=== PATIENT | male | born 1960 | race Caucasian/White ===

== ENCOUNTER 2017-04-10 07:33 | Day surgery (SDC) | payer BC, OTHER ==
[2017-04-09 13:27] VITALS: BMI 25.3
[2017-04-10] MEDS ORDERED: DEXAMETHASONE SOD PHOSPHATE 4 MG/1 ML VIAL ONE ×2 (08:39→11:47)
[2017-04-10] MEDS ORDERED: PROPOFOL 20 ML ONE (08:39)
[2017-04-10] MEDS ORDERED: PHENYLEPHRINE HCL 10 MG/1 ML SINGLE DOSE VIAL ONE (08:39)
[2017-04-10] MEDS ORDERED: LIDOCAINE HCL/PF 2% SDV 5ML VIAL ONE (08:39)
[2017-04-10] MEDS ORDERED: SUCCINYLCHOLINE CHLORIDE 200 MG/10 ML VIAL ONE (08:39)
[2017-04-10] MEDS ORDERED: ROCURONIUM BROMIDE 50 MG/5 ML VIAL ONE ×3 (08:40→10:33)
[2017-04-10] MEDS ORDERED: MIDAZOLAM HCL 2 MG/2 ML SINGLE DOSE VIAL ONE (08:40)
[2017-04-10] MEDS ORDERED: ePHEDrine SULFATE 50 MG/1 ML AMPULE ONE (08:41)
[2017-04-10] MEDS ORDERED: SODIUM CHLORIDE 0.9% P/F 10 ML VIAL IJ ONE (08:42)
[2017-04-10] MEDS ORDERED: BUPIVACAINE HCL/PF 0.5% (5MG/ML) 10 ML VIAL ONE (08:45)
[2017-04-10] MEDS ORDERED: CLINDAMYCIN 600 MG PREMIX BAG IVPB ONE ×2 (09:59→10:10)
[2017-04-10] MEDS ORDERED: HYDROmorphone HCL/PF 1 MG/ML VIAL (FOR PYXIS CHARGING ONLY) ONE ×4 (10:07→10:43)
[2017-04-10] MEDS ORDERED: CLINDAMYCIN PHOSPHATE 600 MG/4 ML VIAL ONE (10:15)
[2017-04-10] MEDS ORDERED: NEOSTIGMINE METHYLSULFATE 0.5 MG/ML - 10 ML MDV ONE (11:45)
[2017-04-10] MEDS ORDERED: GLYCOPYRROLATE 0.2 MG/1 ML VIAL ONE (11:45)
[2017-04-10] MEDS ORDERED: PROMETHAZINE HCL 25 MG/1 ML VIAL IVPUSH PRN (12:08)
[2017-04-10] MEDS ORDERED: oxyCODONE HCL 5 MG TABLET PO PRN (12:08)
[2017-04-10] MEDS ORDERED: LACTATED RINGERS SOLUTION 1,000 ML IV SCH (12:15)
[2017-04-10 13:55] VITALS: TEMP 98.6
[2017-04-10] MEDS ORDERED: oxyCODONE HCL 5 MG TABLET ONE (14:38)
--- NOTE | 2017-04-10 15:15 | HP ---
Satellite [facility] - Chief Complaint Chief Complaint: Left inguinal hernia History Source: Patient Limitations to Obtaining History: No Limitations - Past Medical History Allergies/Adverse Reactions: Allergies Allergy/AdvReac Type Severity Reaction Status Date / Time Penicillins Allergy Intermediate Hives Verified 04/10/17 08:00 Cardiovascular: Yes: AFIB, Aneurysm - Current Medications Current Medications: Home Medications Medication Instructions Recorded Aspirin Coated [Ecotrin -] 81 mg PO DAILY 04/09/17 Enalapril Maleate [Vasotec -] 10 mg PO ASDIR 04/09/17 Metoprolol Succinate [Toprol Xl -] 50 mg PO DAILY 04/09/17 Metoprolol Succinate [Toprol Xl -] 100 mg PO HS 04/09/17 Docusate Sodium [Colace -] 100 mg PO TID #90 capsule 04/10/17 Oxycodone HCl/Acetaminophen 1 - 2 tab PO Q6H #28 tab MDD 4 04/10/17 [Percocet 5-325 mg Tablet] Satellite Physical Exam - Physical Examination Vital Signs: Vital Signs Period Temp Pulse Resp BP Sys/Gupta Pulse Ox Last 24 Hr 97.8 F-98.6 F 54-67 14-20 106-141/57-90 95-100 General Appearance: Well Nourished Heart: Regular rate & rhythm Abdomen: Soft, Other (Left inguinal hernia) Neurological: Alert, Oriented Satellite Impression/Plan - Impression/Plan Impression: Left inguinal hernia Operative Procedure: Robotic possible open left inguinal hernia repir with mesh Date to be Performed: 04/10/17
--- NOTE | 2017-04-10 15:18 | OP ---
Operative Note - Note: Operative Date: 04/10/17 Pre-Operative Diagnosis: Left inguinal hernia Operation: Robotic left inguinal hernia repair with mesh. Laparoscopic umbilical hernia repair Post-Operative Diagnosis: Other (Left inguinal hernia, umbilical hernia) Surgeon: Kota Vásquez Eyeglass Fitter: Beto Leonardo Anesthesia: General Specimens Removed: None Estimated Blood Loss (mls): 10 Operative Report Dictated: Yes
--- NOTE | 2017-04-10 16:05 | SPEC ---
DATE OF OPERATION: 04/10/2017 SURGEON: Kota Vásquez MD SHOER: Beto Leonardo MD PREOPERATIVE DIAGNOSIS: Left inguinal hernia. POSTOPERATIVE DIAGNOSIS: Left inguinal hernia, umbilical hernia. PROCEDURE: Robotic left inguinal hernia repair with mesh, laparoscopic umbilical hernia repair. ESTIMATED BLOOD LOSS: 10 mL DRAINS: None. ANESTHESIA: GET. SPECIMENS: None. REASON FOR PROCEDURE: This is a 56-year-old gentleman who presented to the office with left groin pain. He had a previous right inguinal hernia repaired in an open fashion in the past and now presents with left again groin pain and bulging. He was found to have a reducible inguinal hernia on exam, causing pain. Because of this, he was consented for a robotic left inguinal hernia repair with mesh. RISKS AND BENEFITS: The risks and benefits of a Robotic, possible open left inguinal hernia repair, possible bilateral inguinal hernia repair with mesh were explained. These included bleeding, infection, recurrence of hernia, MO, DVT, PE, new hernia, mesh infection, injury to surrounding structures, including the colon, bowel, bladder, ureter, spermatic cord, spermatic vessels, vas deferens, vessel injury, nerve injury, testicular injury, including testicular atrophy and possible testicular loss, and as some of the possible complications. The patient understood and signed informed consent. DESCRIPTION OF PROCEDURE: The patient was placed supine on the operating table. The patient underwent general endotracheal intubation. A Huff catheter was inserted. The arms were tucked at the side and he was placed on a beanbag device. The abdomen was prepped and draped in the usual sterile fashion. A time-out was performed. A periumbilical incision was made. An umbilical hernia was noted. Entrance into the abdominal cavity was obtained using an 8-mm robotic optical trocar under direct visualization with the laparoscope through the umbilical hernia defect. Pneumoperitoneum was established. Subsequently, 2 additional 8-mm trocars were placed, one approximately 6 to 7 cm to the left of the umbilicus and one 6 to 7 cm to the right of the umbilicus. The patient was placed in steep Trendelenburg hnat-okam-ri position. The robot was brought over the field and docked. Dissection was performed at the console. The peritoneum was opened using robotic Endo Sherie. The preperitoneal space over the left inguinal region was dissected. The epigastric vessels were identified and dissected toward the anterior abdominal wall. Dissection in the preperitoneal space was continued from the medial umbilical ligament towards the anterior-superior iliac spine. Medially, dissection was performed until Son's ligament and the pubis were identified. Lateral to this, the spermatic cord structures, including the vas deferens, were identified. The contents of the hernia sac were identified and dissected down to the retroperitoneum. At this point, hemostasis was identified. Again, all of the hernia content was noted to be completely dissected and noted to have no retraction back to its original position. A Symbotex mesh was then chosen, irrigated and inserted into the abdominal cavity to cover the entire myopectineal orifice. The mesh was secured medially at the pubis and superolaterally to the abdominal wall with sutures. The mesh was noted to be in good position. The hernia was again noted to be fully reduced and without any tension. At this point, the peritoneal flap was closed using a 2-0 V-Loc suture. Again, hemostasis was identified. All needles were removed from the field and the count was confirmed to be correct. The robotic instruments were removed. The robot was undocked and removed from the operative field. The patient was placed supine. At the end of the repair of the left inguinal hernia, the umbilical hernia was repaired using a Narinder- Jorge L device with a 0 Vicryl suture. The fascia was noted to be fully closed at the end of the repair. Pneumoperitoneum was desufflated. All trocars were removed. All incision sites were irrigated and Marcaine was injected in all incision sites. Hemostasis was noted at all incision sites. All incision sites were closed using 4-0 Biosyn. Sterile dressings were applied. The Huff catheter was removed. The patient tolerated the procedure well and was transferred to the recovery room in stable condition. Perez [id number] FEDER[place]
[2017-04-10 16:14] VITALS: BP 120/61; PULSE 49
== END 2017-04-10 16:00 | disposition home or self-care (01) ==
LOC: JASU-SURG 07:33
PROVIDERS: ATTEND Surgery
PROC: 8E0W4CZ Robotic Assisted Procedure of Trunk Region, Percutaneous Endoscopic Approach (ICD-10-PCS; 2017-04-10)
PROC: 0WUF4JZ Supplement Abdominal Wall with Synthetic Substitute, Percutaneous Endoscopic Approach (ICD-10-PCS; 2017-04-10)
PROC: 0YU64JZ Supplement Left Inguinal Region with Synthetic Substitute, Percutaneous Endoscopic Approach (ICD-10-PCS; principal; 2017-04-10 09:00)
DX: K40.90 Unilateral inguinal hernia, without obstruction or gangrene, not specified as recurrent (principal); K42.9 Umbilical hernia without obstruction or gangrene
CPT/HCPCS: 49650; 49652; S2900; 94760

== ENCOUNTER 2017-11-19 07:07 | Day surgery (SDC) | payer BC, OTHER ==
[2017-11-18 12:45] VITALS: BMI 25.0
--- NOTE | 2017-11-19 08:25 | HP ---
Satellite H - Chief Complaint Chief Complaint: left shoulder pain - Past Medical History Allergies/Adverse Reactions: Allergies Allergy/AdvReac Type Severity Reaction Status Date / Time Penicillins Allergy Intermediate Hives Verified 11/19/17 07:41 Cardiovascular: Yes: AFIB, Aneurysm - Current Medications Current Medications: Home Medications Medication Instructions Recorded Aspirin Coated [Ecotrin -] 81 mg PO DAILY 04/09/17 Enalapril Maleate [Vasotec -] 10 mg PO DAILY 04/09/17 Metoprolol Succinate [Toprol XL -] 50 mg PO HS 04/09/17 Metoprolol Succinate [Toprol XL -] 100 mg PO DAILY 04/09/17 Oxycodone HCl/Acetaminophen 1 - 2 tab PO Q6H #40 tab MDD 8 11/19/17 [Percocet 5-325 mg Tablet -] Oxycodone HCl/Acetaminophen 1 - 2 tab PO Q6H #28 tab MDD 4 11/19/17 [Percocet 5-325 mg Tablet] Satellite Physical Exam - Physical Examination Vital Signs: Vital Signs Period Temp Pulse Resp BP Sys/Gupta Pulse Ox Last 24 Hr 98.7 F 58 18 132/87 95 General Appearance: Well Nourished, Well Developed, Alert & Oriented x3 ENT: Clear Lung: Normal air movement Heart: Regular rate & rhythm Extremities: Other (left shoulder- +ttp, decr rom, + neer, + morse, + apprehension, + obriens, nvi MRI + labral tear) Neurological: Intact, Alert, Oriented Satellite Impression/Plan - Impression/Plan Impression: left shoulder impingement, labral tear Operative Procedure: left shoulder arthroscopy SAD, possible labral tear Date to be Performed: 11/19/17
[2017-11-19] MEDS ORDERED: MIDAZOLAM HCL 2 MG/2 ML SINGLE DOSE VIAL ONE ×2 (08:28→08:29)
[2017-11-19] MEDS ORDERED: ROPIVACAINE HCL 0.5% 30ML VIAL ONE (08:30)
[2017-11-19] MEDS ORDERED: PROPOFOL 20 ML ONE ×2 (09:35→10:50)
[2017-11-19] MEDS ORDERED: ROCURONIUM BROMIDE 50 MG/5 ML VIAL ONE (09:35)
[2017-11-19] MEDS ORDERED: LIDOCAINE HCL/PF 2% SDV 5ML VIAL ONE (09:35)
[2017-11-19] MEDS ORDERED: ceFAZolin SODIUM 1 GM VIAL IVPB ONE ×2 (09:48→10:16)
[2017-11-19] MEDS ORDERED: GLYCOPYRROLATE 0.2 MG/1 ML VIAL ONE (10:13)
[2017-11-19] MEDS ORDERED: ceFAZolin SODIUM 1 GM VIAL ONE (10:13)
[2017-11-19] MEDS ORDERED: NEOSTIGMINE METHYLSULFATE 0.5 MG/ML - 10 ML MDV ONE (10:13)
[2017-11-19] MEDS ORDERED: DEXAMETHASONE SOD PHOSPHATE 4 MG/1 ML VIAL ONE (10:13)
--- NOTE | 2017-11-19 11:03 | OP ---
Operative Note - Note: Operative Date: 11/19/17 ([facility]) Pre-Operative Diagnosis: left shoulder labral tear, impingement Operation: left shoulder arthroscopy with labral repair, SAD, ESTEFANI Implants: 2 arthrex pushlocks Post-Operative Diagnosis: Same as Pre-op Surgeon: Barrett Wright Floor Worker Well Service: Everardo Villanueva) Anesthesiologist/ENROLLMENT MANAGEMENT COORDINATOR: Ritika Ferrera Anesthesia: General, Local Specimens Removed: shavings Estimated Blood Loss (mls): 5 Operative Report Dictated: Yes
[2017-11-19] MEDS ORDERED: IBUPROFEN 800 MG/8 ML IJ IVPB PRN (11:18)
[2017-11-19] MEDS ORDERED: oxyCODONE HCL 5 MG TABLET PO PRN (11:18)
[2017-11-19] MEDS ORDERED: ONDANSETRON 4 MG/2 ML VIAL IVPUSH PRN (11:18)
[2017-11-19] MEDS ORDERED: LACTATED RINGERS SOLUTION 1,000 ML IV SCH (11:30)
--- NOTE | 2017-11-19 12:08 | OP ---
DATE OF OPERATION: 11/19/2017 PREOPERATIVE DIAGNOSIS: Left shoulder impingement syndrome and possible labral tear. POSTOPERATIVE DIAGNOSES: Left shoulder impingement syndrome and labral tear. PROCEDURE: Left shoulder arthroscopy, subacromial decompression and arthroscopic labral repair. SURGEON: Barrett Wright MD NIPPING MACHINE OPERATOR: Everardo Villanueva MD SECOND NIPPING MACHINE OPERATOR: TAE Sullivan ANESTHESIOLOGIST: Ritika Ferrera MD ANESTHESIA: Left interscalene block with LMA anesthesia. DRAINS: None. COMPLICATIONS: None. BLOOD LOSS: 100 mL. FLUID REPLACEMENT: 1000 mL. This patient is a 56-year-old male with a preoperative diagnosis of left shoulder impingement syndrome with a possible labral tear. After understanding the potential risks, complications, alternatives and benefits of surgical versus nonsurgical treatment the patient elected to undergo this procedure. The patient was brought to the operating room. Peripheral IV placed. IV sedation given. Ancef 1 g IV was given. LMA anesthesia was induced. Left interscalene block was performed. He was placed in the beach-chair position with ample padding throughout. The left upper extremity was put through a range of motion, but there was no significant tightness using this manipulation under anesthesia. The left upper extremity was then prepped and draped in a sterile fashion. The bony landmarks marked out with a marking pen. Posterior portal was established. Diagnostic glenohumeral arthroscopy was performed. The patient was seen to have an obviously torn anterior labrum and biceps anchor. There was a lot of fraying of the biceps tendon and the biceps anchor and a lot of intraarticular synovitis. Therefore, an anterior portal was established under direct visualization using a spinal needle. An ArthroCare wand was introduced into the glenohumeral joint and the synovitis was cauterized and using a combination of the ArthroCare wand and the shaver the frayed aspects of the biceps anchor and torn labrum were debrided. Next I put a probe in and probed the labrum and biceps anchor and clearly there was a large tear. I then used a rasp to roughen up the landing bed on the edge of the glenoid and put a shaver in to remove debris. Then using the standard arthroscopic technique we put in 2 Arthrex labral repair PushLock anchors using FiberWire. They both came down quite nicely. A probe was introduced into the joint and the labrum probed and overall the repair was quite good. The area was copiously irrigated and washed out. Except for a small amount of glenoid arthritis there was no other intraarticular pathology. Next our attention turned to the subacromial space. Patient had a tremendous amount of inflammatory bursitis. A lateral portal was established using a spinal needle under direct visualization and then a Green canula was introduced into the subacromial space. An extensive debridement/soft tissue bursectomy was performed with the ArthroCare wand. This revealed a moderate-sized anterior subacromial spur and no clavicular spur. The subacromial spur was taken down with the 5.5-mm oval bur in forward and fine tuned in reverse and then the shaver was used to fine tune it as well as remove all soft tissue and bony debris. Once this was done the top surface of the rotator cuff was directly visualized and I was able to see that there were no points of compression. In addition there was no rotator cuff tear. The area was copiously irrigated and washed out, again washed out with the shaver just to remove bony debris and the arthroscope was removed. All instrumentation was removed from the left shoulder. Excess saline was removed. The arthroscopy portals were closed with 3-0 nylon sutures. The area was then washed and dried, covered with Aquacel dressing. He was put into a shoulder immobilizer, extubated, brought down out of the beach-chair position. Total operative time was about 50 minutes. There were no complications during the case. The patient tolerated the procedure quite well. Perez [id number]
[2017-11-19 12:46] VITALS: TEMP 98.3
[2017-11-19 15:10] VITALS: BP 129/81; PULSE 56
--- NOTE | 2017-11-20 16:19 | PATH ---
Surgical Pathology Report Patient Name: RAULITO ANTONY [facility]. Rec. #: [id number] /Age/Gender: 1960 (Age: 56) / M Account: [id number] Location: [facility] [place] [facility] Taken: 11/19/2017 Received: 11/19/2017 Reported: 11/20/2017 Physicians: Barrett Wright M.D. Specimen(s) Received LEFT SHOULDER SHAVINGS Clinical History Left shoulder impingement syndrome Final Diagnosis LEFT SHOULDER SHAVINGS: FRAGMENTS OF SYNOVIAL TISSUE WITH MILD HYPERPLASIA. FRAGMENTS OF BONE, SKELETAL MUSCLE, FIBROCONNECTIVE TISSUE AND CARTILAGE WITH MILD DEGENERATIVE CHANGE. Electronically Signed Mekhi Saucedo M.D. Gross Description Received in formalin, labeled "left shoulder shavings," is a 4.8 x 3.5 x 0.4 cm. aggregate of wright-yellow soft tissue fragments. A customer service representative portion is submitted in one cassette. /11/19/2017 saudi11/19/2017
== END 2017-11-19 13:30 | disposition home or self-care (01) ==
LOC: JASU-SURG 07:07
PROVIDERS: ATTEND Orthopaedic Surgery
PROC: 0RBK4ZZ Excision of Left Shoulder Joint, Percutaneous Endoscopic Approach (ICD-10-PCS; 2017-11-19)
PROC: 0RQK4ZZ Repair Left Shoulder Joint, Percutaneous Endoscopic Approach (ICD-10-PCS; principal; 2017-11-19 09:00)
DX: M75.42 Impingement syndrome of left shoulder (principal); M24.112 Other articular cartilage disorders, left shoulder
CPT/HCPCS: 88304-TC; 94760

== ENCOUNTER 2018-07-22 11:20 | Day surgery (SDC) | payer BC, OTHER ==
[2018-07-21 13:46] VITALS: BMI 26.4
[2018-07-22] MEDS ORDERED: ONDANSETRON 4 MG/2 ML VIAL IVPUSH PRN (12:46)
[2018-07-22] MEDS ORDERED: oxyCODONE HCL 5 MG TABLET PO PRN (12:46)
[2018-07-22] MEDS ORDERED: LACTATED RINGERS SOLUTION 1,000 ML IV SCH (13:00)
[2018-07-22] MEDS ORDERED: ceFAZolin SODIUM 1 GM VIAL IVPB ONE (13:13)
[2018-07-22] MEDS ORDERED: BUPIVACAINE HCL/PF (5 MG/ML) 30 ML VIAL IJ ONE (13:35)
[2018-07-22] MEDS ORDERED: BUPIVACAINE HCL/PF 0.5% (5MG/ML) 10 ML VIAL IJ ONE (15:11)
--- NOTE | 2018-07-22 16:05 | OP ---
Operative Note - Note: Operative Date: 07/22/18 Pre-Operative Diagnosis: Right recurrent inguinal hernia, left inguinal hernia Operation: Bilateral laparoscopic inguinal hernia repair with mesh Post-Operative Diagnosis: Same as Pre-op Surgeon: Espinoza Milner Clinical Partner: Rachel Girard Anesthesiologist/PRESIDENT [employer]: Emma Peterson MD Anesthesia: General Estimated Blood Loss (mls): 25 Fluid Volume Replaced (mls): 1,500 Operative Report Dictated: Yes
--- NOTE | 2018-07-22 16:07 | SURG ---
Surgery Licensed Nuclear Control Room Operator Note Licensed Nuclear Control Room Operator: Rachel Girard PA-C Date of Service: 07/22/18 Diagnosis: Right recurrent inguinal hernia, left inguinal hernia Procedure: Bilateral laparoscopic inguinal hernia repair with mesh I was present for the entirety of the operative procedure. For further detail, please refer to operative report.
[2018-07-22] MEDS ORDERED: oxyCODONE HCL 5 MG TABLET PO ONE (18:05)
[2018-07-22 18:58] VITALS: BP 123/81; PULSE 69; TEMP 98
--- NOTE | 2018-07-29 11:28 | PATH ---
Surgical Pathology Report Patient Name: RAULITO ANTONY [facility]. Rec. #: [id number] /Age/Gender: 1960 (Age: 57) / M Account: [id number] Location: AMBULATORY SURG Taken: 07/22/2018 Received: 07/23/2018 Reported: 07/29/2018 Physicians: Espinoza Milner M.D. Specimen(s) Received Lipoma Clinical History Bilateral inguinal hernia Final Diagnosis LIPOMA: MATURE ADIPOSE TISSUE, CONSISTENT WITH LIPOMA. Electronically Signed Mekhi Saucedo M.D. Gross Description Received in formalin labeled "lipoma" is a 5.5 x 5.0 x 0.4 cm aggregate of yellow, lobulated adipose tissue. No discrete lymph nodes are identified. The specimen is entirely submitted in 4 cassettes. DL/07/23/2018 saudi07/23/2018
--- NOTE | 2018-08-13 15:10 | OP ---
DATE OF OPERATION: 07/22/2018 PREOPERATIVE DIAGNOSIS: Right recurrent inguinal hernia and left inguinal hernia. POSTOPERATIVE DIAGNOSIS: Right recurrent inguinal hernia and left inguinal hernia. PROCEDURE: Bilateral inguinal hernia repair with mesh. SURGEON: Espinoza Milner MD CASH REGISTER OPERATOR: Rachel Girard PA-C COMPLICATIONS: None. BLOOD LOSS: Minimal. Patient tolerated the procedure well. INDICATIONS: This is a 57-year-old male status post a left inguinal hernia repair done approximately a year ago, who presents with a recurrence of the hernia and also complains of right groin pain. On exam he was found to have bilateral inguinal hernias and was referred for surgical evaluation and treatment. Risks and benefits were discussed and approaches were reviewed with the patient including robotic, laparoscopic, and open repair. He agreed to the procedure with laparoscopic approach. DESCRIPTION OF PROCEDURE: In the operating room he was placed in supine position. After the induction of general anesthesia, he was prepped and draped in the usual sterile fashion. The operation was begun with insufflation with a Veress needle in the periumbilical space through a 10-mm incision. A 12-mm optical trocar was inserted here through peritoneal cavity, and under direct vision two 5-mm ports were placed, one in the right flank and one in the left flank. A third trocar was placed in the suprapubic position. The dissection was begun with using first robotic scissors and then LigaSure to raise a flap of the peritoneum starting near the midline and extending towards the pubic symphysis, and then extending the right angle laterally all the way to the ileopubic tract. Care was taken to avoid injury to the inferior epigastric vessels. The sac and the defect were clearly visualized with a recurrence in the lateral aspect lateral to the cord structures. The dissection was performed to then reduce carefully the sac using mostly blunt dissection with some use of LigaSure and cautery. Care was taken to avoid injury to the inferior epigastric vessels and to the cord structures. The sac was then slowly and gently reduced completely, and then the mesh could be visualized along the ileopubic tract. It appeared to have folded on itself, allowing for the recurrence to occur in the inferolateral aspect. At this point then, the area was completely dissected and then the cord structures skeletonized. Attention was directed towards the patient's right side where a similar flap was raised with the use of LigaSure and laparoscopic scissors. The dissection was performed to completely expose the ileopubic tract, and the inferior epigastric vessels were appropriately protected. The cord structures were dissected. The sac was completely reduced. At this point then repair was performed bilaterally with use of a 10 x 15 mesh of ProGrip which was opened to cover both the direct and direct and terminal spaces carefully. With that complete, then the peritoneal flap was closed using 2-0 V-Loc suture in a running fashion, which was used to close the flap including doing a pexy of the hernia sac. This was done in continuous fashion to make sure that no mesh would be left exposed to the . Once complete, the abdomen was desufflated. The ports were removed under direct vision. The skin was closed with 4-0 Monocryl. Dermabond was applied, and the patient was returned to the recovery room awake and alert, in stable condition. He tolerated the procedure well. Perez [id number]
== END 2018-07-22 19:00 | disposition home or self-care (01) ==
LOC: JASUSAT 11:20
PROVIDERS: ATTEND Surgery
PROC: 0YUA4JZ Supplement Bilateral Inguinal Region with Synthetic Substitute, Percutaneous Endoscopic Approach (ICD-10-PCS; principal; 2018-07-22 13:00)
DX: K40.21 Bilateral inguinal hernia, without obstruction or gangrene, recurrent (principal)
CPT/HCPCS: 88304-TC; 94760

== ENCOUNTER 2021-05-16 04:24 | Day surgery (SDC) | payer BC, OTHER ==
[2021-05-15 15:19] VITALS: BMI 27.7
[2021-05-16 08:38] VITALS: TEMP 97.3
[2021-05-16] MEDS ORDERED: PROPOFOL 20 ML ONE ×2 (09:39→10:22)
[2021-05-16] MEDS ORDERED: MIDAZOLAM HCL 2 MG/2 ML SINGLE DOSE VIAL ONE (09:39)
[2021-05-16] MEDS ORDERED: LIDOCAINE HCL 1%, 10 MG/ML (20ML VIAL) ONE (09:58)
[2021-05-16] MEDS ORDERED: CLINDAMYCIN PHOSPHATE 600 MG/4 ML VIAL IVPB ONE (10:20)
[2021-05-16] MEDS ORDERED: CLINDAMYCIN PHOSPHATE 600 MG/4 ML VIAL ONE (10:21)
[2021-05-16] MEDS ORDERED: BUPIVACAINE HCL/PF 0.5% (5MG/ML) 10 ML VIAL IJ ONE (10:33)
[2021-05-16] MEDS ORDERED: LIDOCAINE HCL 1%, 10 MG/ML (20ML VIAL) INF ONE (10:33)
[2021-05-16] MEDS ORDERED: oxyCODONE HCL 5 MG TABLET PO PRN ×2 (11:24)
[2021-05-16] MEDS ORDERED: ONDANSETRON 4 MG/2 ML VIAL IVPUSH PRN (11:24)
[2021-05-16] MEDS ORDERED: ACETAMINOPHEN 500 MG TABLET (FP) PO PRN (11:24)
[2021-05-16] MEDS ORDERED: LACTATED RINGERS SOLUTION 1,000 ML IV SCH (11:30)
[2021-05-16 12:21] VITALS: PULSE 52
[2021-05-16 12:38] VITALS: BP 112/72
== END 2021-05-16 12:10 | disposition home or self-care (01) ==
LOC: JASU-SURG 04:24
PROVIDERS: ATTEND Orthopaedic Surgery
PROC: 0LN70ZZ Release Right Hand Tendon, Open Approach (ICD-10-PCS; principal; 2021-05-16 10:00)
DX: M65.311 Trigger thumb, right thumb (principal)

== ENCOUNTER 2022-02-27 07:14 | Day surgery (SDC) | payer BC, OTHER ==
[2022-02-27 07:21] VITALS: BMI 27.7
[2022-02-27] MEDS ORDERED: FAMOTIDINE 20 MG/50 ML IVPB 20 MG/50 ML MG IVPB ONE (07:22)
[2022-02-27] MEDS ORDERED: ACETAMINOPHEN 1000 MG/100 ML BAG IVPB ONE (07:22)
[2022-02-27] MEDS ORDERED: ACETAMINOPHEN INJECTION 100 ML IVPB ONE (07:39)
[2022-02-27 08:15] LABS: HEMATOCRIT 47.6 % (35.4-49); HEMOGLOBIN 16.6 G/dL (11.7-16.9); MCH 34.6 pg (25.7-33.7); MCHC 34.8 g/dl (32.0-35.9); MEAN CELL VOLUME 99.4 fl (80-96); MEAN PLT VOLUME 7.7 fl (7.5-11.1); PLATELET COUNT 140.7 10^3/uL (134-434); RBC 4.79 10^6/uL (4.00-5.60); RDW 14.2 % (11.9-15.9); WHITE BLOOD COUNT 8.5 10^3/uL (4.0-10.8)
[2022-02-27 08:24] LABS: ALBUMIN 3.9 g/dl (3.4-5.0); BILIRUBIN,TOTAL 1.2 mg/dl (0.2-1); CALCIUM 9.3 mg/dl (8.5-10); CREATININE 0.7 mg/dl (0.55-1.3); TOT PROT 6.6 g/dl (6.4-8.2)
[2022-02-27 08:56] LABS: PLATELET ESTIMATE ADEQUATE
[2022-02-27] MEDS ORDERED: CEFTRIAXONE 1,000 MG in DEXTROSE 5%-WATER - 50 ML IVPB ONE (09:07)
[2022-02-27] MEDS ORDERED: morphine SULFATE 4 MG/ML VIAL IVPUSH ONE (09:13)
[2022-02-27] MEDS ORDERED: cefTRIAXone SODIUM 1 GM VIAL ONE (09:14)
[2022-02-27] MEDS ORDERED: morphine SULFATE 4 MG/ML VIAL ONE ×2 (09:17→14:39)
[2022-02-27] MEDS ORDERED: ACETAMINOPHEN 1000 MG/100 ML BAG IVPB PRN ×2 (09:55→18:24)
[2022-02-27] MEDS ORDERED: ONDANSETRON 4 MG/2 ML VIAL IVPUSH PRN (09:55)
[2022-02-27] MEDS ORDERED: ENALAPRIL MALEATE 10 MG TABLET PO SCH (10:00)
[2022-02-27 10:40] LABS: INR 1.02 (0.83-1.09); PROTHROMBIN TIME (PATIENT) 11.7 SEC (9.7-13.0)
[2022-02-27 10:43] LABS: ACTIVATED PTT 31.6 SECONDS (25.2-36.5)
[2022-02-27] MEDS: DEXTROSE 5%-NORMAL SALINE 1,000 ML IV SCH ×2 (11:26→20:29)
[2022-02-27] MEDS: metoPROLOL SUCCINATE 25 MG TAB.SR.24H (FP) PO SCH ×2 (12:36→21:06)
[2022-02-27] MEDS ORDERED: SODIUM CHLORIDE 0.9% 500 ML INFUS.BAG IV ONE (13:06)
[2022-02-27] MEDS: morphine SULFATE 4 MG/ML VIAL IVPUSH PRN ×2 (14:45→20:08)
[2022-02-28] MEDS: DEXTROSE 5%-NORMAL SALINE 1,000 ML IV SCH ×2 (06:14→11:34)
[2022-02-28 09:14] LABS: INR 1.05 (0.83-1.09); PROTHROMBIN TIME (PATIENT) 12.1 SEC (9.7-13.0)
[2022-02-28 09:18] LABS: BASO % 0.5 % (0-2.0); HEMATOCRIT 44.9 % (35.4-49); HEMOGLOBIN 15.8 GM/dL (11.7-16.9); MCH 34.7 pg (25.7-33.7); MCHC 35.3 g/dl (32.0-35.9); MEAN CELL VOLUME 98.5 fl (80-96); MEAN PLT VOLUME 7.4 fl (7.5-11.1); MONO % 9.9 % (3.8-10.2); NEUT % 76.6 % (42.8-82.8); PLATELET COUNT 146 10^3/uL (134-434); RBC 4.55 M/mm3 (4.00-5.60); RDW 13.7 % (11.9-15.9); WHITE BLOOD COUNT 7.1 K/mm3 (4.0-10.0)
[2022-02-28] MEDS: metoPROLOL SUCCINATE 25 MG TAB.SR.24H (FP) PO SCH ×2 (09:56→22:01)
[2022-02-28] MEDS ORDERED: PANTOPRAZOLE 40 MG TABLET PO SCH (10:00)
[2022-02-28 10:09] LABS: CALCIUM 8.6 mg/dL (8.5-10.1)
[2022-02-28 10:10] LABS: ALBUMIN 3.4 g/dl (3.4-5.0); BLOOD UREA NITROGEN 7.2 mg/dL (7-18)
[2022-02-28 10:12] LABS: BILIRUBIN,DIRECT 0.4 mg/dL (0.0-0.2)
[2022-02-28 10:13] LABS: CREATININE 0.7 mg/dL (0.55-1.3)
[2022-02-28 10:14] LABS: TOT PROT 6.6 g/dl (6.4-8.2)
[2022-02-28 10:15] LABS: BILIRUBIN,TOTAL 1.1 mg/dL (0.2-1)
[2022-02-28] MEDS: morphine SULFATE 4 MG/ML VIAL IVPUSH PRN (11:38)
[2022-02-28] MEDS ORDERED: BUPIVACAINE HCL/PF 0.5% (5MG/ML) 10 ML VIAL ONE (12:37)
[2022-02-28 13:44] LABS: BILIRUBIN,DIRECT 0.3 mg/dL (0.0-0.2)
[2022-02-28] MEDS ORDERED: BUPIVACAINE HCL/PF 0.5% (5MG/ML) 10 ML VIAL IJ ONE ×3 (14:26→18:42)
[2022-02-28] MEDS ORDERED: oxyCODONE HCL 5 MG TABLET PO PRN ×3 (15:56→20:01)
[2022-02-28] MEDS ORDERED: LACTATED RINGERS SOLUTION 1,000 ML IV SCH (16:00)
[2022-02-28] MEDS ORDERED: PIPERACILLIN/TAZOBACTAM 3.375 GM VIAL IVPB ONE ×2 (16:16→18:45)
[2022-02-28] MEDS ORDERED: PROPOFOL 20 ML ONE ×2 (16:18→19:27)
[2022-02-28] MEDS ORDERED: MIDAZOLAM HCL 2 MG/2 ML SINGLE DOSE VIAL ONE (16:18)
[2022-02-28] MEDS ORDERED: ROCURONIUM BROMIDE 50 MG/5 ML SYRINGE ONE (16:18)
[2022-02-28] MEDS ORDERED: HYDROmorphone HCl 2 MG/ML VIAL ONE (18:00)
[2022-02-28] MEDS ORDERED: BUPIVACAINE LIPOSOME/PF (EXPAREL) 266 MG/20 ML VIAL ONE (18:32)
[2022-02-28] MEDS ORDERED: BUPIVACAINE LIPOSOME/PF (EXPAREL) 266 MG/20 ML VIAL NR ONE (18:42)
[2022-02-28] MEDS ORDERED: NEOSTIGMINE METHYLSULFATE 0.5 MG/ML - 10 ML MDV ONE (19:05)
[2022-02-28] MEDS ORDERED: PIPERACILLIN/TAZOB 4.5 GM 4.5 GM in DEXTROSE 5%-WATER 100 ML IVPB SCH (19:15)
[2022-02-28] MEDS ORDERED: morphine SULFATE 4 MG/ML VIAL IVPUSH PRN (20:01)
[2022-02-28] MEDS ORDERED: ONDANSETRON 4 MG/2 ML VIAL IVPUSH PRN (20:01)
[2022-02-28] MEDS: HYDROmorphone *PCA* 10MG/50ML DISP.SYRIN PCA SCH ×2 (20:20→22:05)
[2022-02-28] MEDS ORDERED: HYDROmorphone *PCA* 10MG/50ML DISP.SYRIN ONE (20:21)
[2022-02-28] MEDS: LACTATED RINGERS SOLUTION 1,000 ML IV SCH (22:02)
[2022-03-01] MEDS: LACTATED RINGERS SOLUTION 1,000 ML IV SCH ×4 (04:21→22:53)
[2022-03-01] MEDS: PIPERACILLIN/TAZOB 4.5 GM 4.5 GM in DEXTROSE 5%-WATER 100 ML IVPB SCH (07:53)
[2022-03-01] MEDS: metoPROLOL SUCCINATE 25 MG TAB.SR.24H (FP) PO SCH ×2 (10:11→21:41)
[2022-03-01] MEDS: ASPIRIN COATED 81 MG TABLET.EC PO SCH (10:12)
[2022-03-01] MEDS: PANTOPRAZOLE 40 MG TABLET PO SCH (10:12)
[2022-03-01] MEDS: ENALAPRIL MALEATE 10 MG TABLET PO SCH (10:12)
[2022-03-01 10:47] LABS: BASO % 0.3 % (0-2.0); EOS % 0.3 % (0-4.5); HEMATOCRIT 43.9 % (35.4-49); HEMOGLOBIN 14.8 GM/dL (11.7-16.9); LYMPH % 9.1 % (8-40); MCH 33.7 pg (25.7-33.7); MCHC 33.7 g/dl (32.0-35.9); MEAN CELL VOLUME 99.9 fl (80-96); MONO % 10.3 % (3.8-10.2); PLATELET COUNT 175 10^3/uL (134-434); RDW 13.5 % (11.9-15.9); WHITE BLOOD COUNT 9.7 K/mm3 (4.0-10.0)
[2022-03-01 15:21] LABS: ALBUMIN 3.2 g/dl (3.4-5.0); BLOOD UREA NITROGEN 8.6 mg/dL (7-18); CALCIUM 8.2 mg/dL (8.5-10.1); CREATININE 0.7 mg/dL (0.55-1.3); TOT PROT 6.2 g/dl (6.4-8.2)
[2022-03-01] MEDS ORDERED: ACETAMINOPHEN 325 MG TABLET (FP) PO PRN (20:57)
[2022-03-01] MEDS: POLYETHYLENE GLYCOL (HEALTHYLAX) 3350 17 GM PACKET PO PRN (21:41)
[2022-03-01] MEDS: HYDROmorphone *PCA* 10MG/50ML DISP.SYRIN PCA SCH (21:54)
[2022-03-02] MEDS: ASPIRIN COATED 81 MG TABLET.EC PO SCH (09:06)
[2022-03-02] MEDS: metoPROLOL SUCCINATE 25 MG TAB.SR.24H (FP) PO SCH ×2 (09:06→21:40)
[2022-03-02] MEDS: PANTOPRAZOLE 40 MG TABLET PO SCH (09:06)
[2022-03-02] MEDS: POLYETHYLENE GLYCOL (HEALTHYLAX) 3350 17 GM PACKET PO PRN ×2 (09:06→21:40)
[2022-03-02] MEDS: ENALAPRIL MALEATE 10 MG TABLET PO SCH (09:06)
[2022-03-02 11:35] LABS: HEMATOCRIT 41.2 % (35.4-49); HEMOGLOBIN 14.3 GM/dL (11.7-16.9); MCH 34.2 pg (25.7-33.7); MCHC 34.8 g/dl (32.0-35.9); MEAN CELL VOLUME 98.3 fl (80-96); MEAN PLT VOLUME 7.7 fl (7.5-11.1); PLATELET COUNT 174 10^3/uL (134-434); RBC 4.18 M/mm3 (4.00-5.60); RDW 13.6 % (11.9-15.9); WHITE BLOOD COUNT 8.7 K/mm3 (4.0-10.0)
[2022-03-02 11:47] LABS: ALBUMIN 3.2 g/dl (3.4-5.0)
[2022-03-02 11:50] LABS: ALBUMIN 3.2 g/dl (3.4-5.0); BILIRUBIN,DIRECT 0.3 mg/dL (0.0-0.2); CALCIUM 8.7 mg/dL (8.5-10.1)
[2022-03-02 11:51] LABS: BLOOD UREA NITROGEN 7.1 mg/dL (7-18)
[2022-03-02 11:52] LABS: BILIRUBIN,TOTAL 0.7 mg/dL (0.2-1); TOT PROT 6.2 g/dl (6.4-8.2)
[2022-03-02 11:53] LABS: CREATININE 0.8 mg/dL (0.55-1.3)
[2022-03-02 11:55] LABS: BILIRUBIN,TOTAL 0.8 mg/dL (0.2-1); TOT PROT 6.3 g/dl (6.4-8.2)
[2022-03-02] MEDS: oxyCODONE HCL 5 MG TABLET PO PRN (13:26)
[2022-03-02] MEDS: LACTATED RINGERS SOLUTION 1,000 ML IV SCH ×2 (15:10→17:27)
[2022-03-02] MEDS: ACETAMINOPHEN 325 MG TABLET (FP) PO PRN (17:53)
[2022-03-03] MEDS: ACETAMINOPHEN 325 MG TABLET (FP) PO PRN ×2 (08:39→16:35)
[2022-03-03] MEDS: ENALAPRIL MALEATE 10 MG TABLET PO SCH (10:21)
[2022-03-03] MEDS: ASPIRIN COATED 81 MG TABLET.EC PO SCH (10:21)
[2022-03-03] MEDS: metoPROLOL SUCCINATE 25 MG TAB.SR.24H (FP) PO SCH ×2 (10:21→21:35)
[2022-03-03] MEDS: PANTOPRAZOLE 40 MG TABLET PO SCH (10:21)
[2022-03-03] MEDS: POLYETHYLENE GLYCOL (HEALTHYLAX) 3350 17 GM PACKET PO PRN (12:08)
[2022-03-03 15:21] LABS: BASO % 0.5 % (0-2.0); EOS % 2.4 % (0-4.5); HEMATOCRIT 44.5 % (35.4-49); HEMOGLOBIN 15.2 GM/dL (11.7-16.9); LYMPH % 17.2 % (8-40); MCH 33.6 pg (25.7-33.7); MCHC 34.1 g/dl (32.0-35.9); MEAN CELL VOLUME 98.7 fl (80-96); MEAN PLT VOLUME 7.5 fl (7.5-11.1); MONO % 13.5 % (3.8-10.2); NEUT % 66.4 % (42.8-82.8); PLATELET COUNT 212 10^3/uL (134-434); RBC 4.51 M/mm3 (4.00-5.60); RDW 13.6 % (11.9-15.9)
[2022-03-03 15:42] LABS: CALCIUM 9.2 mg/dL (8.5-10.1)
[2022-03-03 15:43] LABS: ALBUMIN 3.5 g/dl (3.4-5.0); BLOOD UREA NITROGEN 6.6 mg/dL (7-18)
[2022-03-03 15:46] LABS: CREATININE 0.7 mg/dL (0.55-1.3)
[2022-03-03 15:48] LABS: BILIRUBIN,TOTAL 0.8 mg/dL (0.2-1); TOT PROT 6.9 g/dl (6.4-8.2)
[2022-03-03] MEDS ORDERED: BISACODYL 10 MG SUPP.RECT PR PRN (17:20)
[2022-03-03] MEDS: oxyCODONE HCL 5 MG TABLET PO PRN (21:35)
[2022-03-03 23:00] VITALS: RESP 18
[2022-03-04] MEDS: ACETAMINOPHEN 325 MG TABLET (FP) PO PRN ×2 (06:50→13:30)
[2022-03-04] MEDS: PANTOPRAZOLE 40 MG TABLET PO SCH (09:48)
[2022-03-04] MEDS: metoPROLOL SUCCINATE 25 MG TAB.SR.24H (FP) PO SCH (09:48)
[2022-03-04] MEDS: ASPIRIN COATED 81 MG TABLET.EC PO SCH (09:48)
[2022-03-04] MEDS: ENALAPRIL MALEATE 10 MG TABLET PO SCH (09:48)
[2022-03-04 13:40] VITALS: BP 130/78; PULSE 65; TEMP 98.6
== END 2022-03-04 16:58 | disposition home or self-care (01) ==
LOC: FER 07:14 → JASUSAT 09:53 → J6S 15:36 → UNDOADMIN 15:36 → J6S 15:37 → JASUSAT 03-04 16:58
PROVIDERS: ATTEND Family Medicine
PROC: 0FJ44ZZ Inspection of Gallbladder, Percutaneous Endoscopic Approach (ICD-10-PCS; principal; 2022-02-27)
PROC: 0FT40ZZ Resection of Gallbladder, Open Approach (ICD-10-PCS; 2022-02-27)
DX: K80.00 Calculus of gallbladder with acute cholecystitis without obstruction (principal)
CPT/HCPCS: 36415; 71045-TC-FY; 74190-TC-FY; 76705-TC; 80048; 80053; 80076; 82248; 83690; 84484; 85025; 85027; 85610; 85730; 86850; 86900; 86901; 87040; 88304-TC; 93005; 94010; 94760; 99285-25; C9803-CS; U0003; U0005

== ENCOUNTER 2022-11-26 04:34 | Day surgery (SDC) | payer BC, OTHER ==
[2022-11-25 15:10] VITALS: BMI 27.0
[2022-11-26 16:14] VITALS: BP 119/66; PULSE 54; RESP 15; TEMP 97.8
== END 2022-11-26 15:45 | disposition home or self-care (01) ==
LOC: JASU-ENDO 04:34
PROVIDERS: ATTEND Student in an Organized Health Care Education/Training Program
PROC: 0DB78ZX Excision of Stomach, Pylorus, Via Natural or Artificial Opening Endoscopic, Diagnostic (ICD-10-PCS; 2022-11-26)
PROC: 0DB68ZX Excision of Stomach, Via Natural or Artificial Opening Endoscopic, Diagnostic (ICD-10-PCS; 2022-11-26)
PROC: 0DJ08ZZ Inspection of Upper Intestinal Tract, Via Natural or Artificial Opening Endoscopic (ICD-10-PCS; 2022-11-26)
PROC: 0DB48ZX Excision of Esophagogastric Junction, Via Natural or Artificial Opening Endoscopic, Diagnostic (ICD-10-PCS; principal; 2022-11-26 14:30)
DX: K22.2 Esophageal obstruction (principal); K29.70 Gastritis, unspecified, without bleeding; K44.9 Diaphragmatic hernia without obstruction or gangrene
CPT/HCPCS: 88305-TC; 88342-TC

== ENCOUNTER 2023-06-25 13:50 | Emergency (ER) | payer BC, OTHER ==
[2023-06-25 14:03] VITALS: BP 155/100; PULSE 86; RESP 17; TEMP 98.9; BMI 27.7
[2023-06-25] MEDS ORDERED: ACETAMINOPHEN 500 MG TABLET (FP) PO ONE (14:07)
[2023-06-25] MEDS ORDERED: LIDOCAINE 5% TOPICAL PATCH TP ONE (14:07)
[2023-06-25] MEDS ORDERED: METHOCARBAMOL 500 MG TABLET PO ONE (14:07)
[2023-06-25] MEDS ORDERED: KETOROLAC TROMETHAMINE 30 MG/1 ML VIAL IM ONE (14:07)
[2023-06-25] MEDS ORDERED: ACETAMINOPHEN 325 MG TABLET (FP) ONE (14:21)
[2023-06-25] MEDS ORDERED: KETOROLAC TROMETHAMINE 30 MG/1 ML VIAL ONE (14:22)
[2023-06-25] MEDS ORDERED: LIDOCAINE 5% TOPICAL PATCH ONE (14:22)
[2023-06-25] MEDS ORDERED: METHOCARBAMOL 500 MG TABLET ONE (14:22)
[2023-06-25] MEDS ORDERED: predniSONE 20 MG TABLET (UD) PO ONE (15:51)
[2023-06-25] MEDS ORDERED: predniSONE 20 MG TABLET (UD) ONE (16:14)
[2023-06-25] MEDS ORDERED: oxyCODONE HCL 5 MG TABLET PO ONE ×2 (16:48→17:43)
[2023-06-25] MEDS ORDERED: oxyCODONE HCL 5 MG TABLET ONE ×2 (16:58→18:00)
[2023-06-25] MEDS ORDERED: LIDOCAINE PATCH REMOVAL MC ONE (22:00)
== END 2023-06-25 18:06 | disposition home or self-care (01) ==
LOC: FER 13:50
PROC: 3E0233Z Introduction of Anti-inflammatory into Muscle, Percutaneous Approach (ICD-10-PCS; principal; 2023-06-25)
DX: M54.50 Low back pain, unspecified (principal); M79.604 Pain in right leg
CPT/HCPCS: 72100-TC-FY; 73502-TC-RT-FY; 99284-25